=== PATIENT | female | born 1950 | race Two or more races ===

== ENCOUNTER → 2017-03-06 | Outpatient (REF) | payer MEDICARE ==
[~2017-03-06] MED LIST: ALEN70TA39; ALEN70TA39 PO; BACITAB PO; CALC600T31 PO; EXEM25TA; EXEM25TA PO; LEVO88TA24 PO; LEVO88TA3; METR1TAB66; METR1TAB66 PO; VANC125C2 PO; VITA10002 PO; VITMTA PO
== END ==
LOC: M LAB REF 11:36
PROVIDERS: ATTEND Physician Assistant
DX: R19.7 Diarrhea, unspecified (principal)

== ENCOUNTER 2017-03-09 08:57 | Inpatient (IN) | payer MEDICARE ==
[~2017-03-09] VITALS: Ht 154.9 cm; Wt 60.1 kg
[2017-03-09] MEDS ORDERED: METR1TAB66 (09:10)
[2017-03-09] MEDS ORDERED: EXEM25TA (09:10)
[2017-03-09] MEDS ORDERED: ALEN70TA39 (09:10)
[2017-03-09] MEDS ORDERED: LEVO88TA3 (09:10)
[2017-03-09] MEDS ORDERED: NS 500 ML IV ONE (10:15)
[2017-03-09] MEDS ORDERED: fentaNYL 100 MCG/2 ML INJECTION (J3010) IV ONE (10:15)
[2017-03-09 10:44] LABS: BASO % 0.4 % (0.0-1.0); EOS % 0.2 % (0.0-3.0); LARGE UNSTAINED CELL # 0.2 K/mm3 (0.0-0.4); LARGE UNSTAINED CELL % 1.8 % (0.0-4.0); LYMPH # 1.1 K/mm3 (1.5-4.5); LYMPH % 7.4 % (24.0-44.0); MEAN CORPUSCULAR HEMOGLOBIN 31.8 pg (27.0-33.0); MEAN CORPUSCULAR HGB CONC 33.1 g/dl (32.0-36.5); MEAN CORPUSCULAR VOLUME 95.9 fl (80.0-96.0); MONO # 0.5 K/mm3 (0.0-0.8); MONO % 4.3 % (0.0-5.0); NEUTROPHILS # 10.3 K/mm3 (1.8-7.7); PLATELET COUNT, AUTOMATED 429 k/mm3 (150-450); RED CELL DISTRIBUTION WIDTH 12.9 % (11.5-14.5)
[2017-03-09 10:57] LABS: ANION GAP 7 MEQ/L (8-16); BLOOD UREA NITROGEN 5 MG/DL (7-18); CALCIUM LEVEL 8.3 MG/DL (8.8-10.2); CARBON DIOXIDE LEVEL 30 MEQ/L (21-32); CHLORIDE LEVEL 104 MEQ/L (98-107); CREATININE FOR GFR 0.44 MG/DL (0.55-1.02); GLOMERULAR FILTRATION RATE > 60.0 (>45); GLUCOSE, FASTING 112 MG/DL (80-110); SODIUM LEVEL 141 MEQ/L (136-145)
[2017-03-09] MEDS ORDERED: ISOVUE-370 76% 100ML VIAL (Q9967) As Ordered ONE (11:00)
--- NOTE | 2017-03-09 11:23 | REP ---
Clinical: Pain and decreased mobility. Technique: Neutral and frog lateral views of the right hip. Findings: Mild age-related degenerative changes are appreciated including medial joint space narrowing, increased sclerosis to the acetabular roof and subtle spurring. No acute fracture dislocation. Impression: Mild age-related degenerative changes suggested. Signed by Brien Arango MD 03/09/2017 11:14 A
--- NOTE | 2017-03-09 11:38 | REP ---
Clinical: Acute chest pain. Technique: Axial contrast enhanced images from the thoracic inlet to the upper abdomen using 100 ml Isovue 370 intravenous contrast material with coronal and sagittal re-formations. Findings: Satisfactory enhancement of the pulmonary vasculature is achieved and no filling defects are identified to suggest pulmonary embolus. Thoracic aorta is normal caliber without aneurysm or dissection. Heart and pericardium are normal. Bilateral lung camilo are well aerated and clear without acute pulmonary parenchymal consolidation or atelectasis. No nodule or mass lesion. No pleural effusion/reaction. No pneumothorax. No adenopathy. Impression: No evidence for pulmonary embolus. No acute pleuroparenchymal or mediastinal process. Signed by Brien Arango MD 03/09/2017 11:30 A
--- NOTE | 2017-03-09 11:40 | REP ---
Clinical: Acute cervical/neck pain. Technique: Axial noncontrast images from the skull base to the thoracic inlet with coronal and sagittal re-formations. Findings: Moderate to advanced multilevel degenerative changes include bridging osteophytes, endplate sclerosis and disc space narrowing as well as mild uncovertebral hypertrophy. Alignment and lordosis maintained. No acute fracture / compression injury or subluxation. Spinal canal is patent. Posterior elements and spinous processes are intact. Paravertebral soft tissues are normal. Impression: Moderate to early advanced multilevel degenerative disc disease. No acute fracture / compression injury or subluxation. Signed by Brien Arango MD 03/09/2017 11:31 A
[2017-03-09] MEDS ORDERED: POTASSIUM CHLORIDE 10% LIQ 20 MEQ/15 ML UDC PO ONE ×2 (12:15→18:00)
[2017-03-09] MEDS ORDERED: CYCLOBENZAPRINE 5MG TABLET PO ONE (12:30)
[2017-03-09] MEDS ORDERED: VITA10002 PO (13:18)
[2017-03-09] MEDS ORDERED: VITMTA PO (13:18)
[2017-03-09] MEDS ORDERED: METR1TAB66 PO (13:18)
[2017-03-09] MEDS ORDERED: LEVO88TA24 PO (13:18)
[2017-03-09] MEDS ORDERED: EXEM25TA PO (13:18)
[2017-03-09] MEDS ORDERED: CALC600T31 PO (13:18)
[2017-03-09] MEDS ORDERED: ALEN70TA39 PO (13:18)
[2017-03-09] MEDS ORDERED: IPRATROPIUM 0.5MG/ALBUTEROL 2.5MG INH SOL UD 3ML (DUONEB)(J7620) NEB PRN (14:00)
[2017-03-09] MEDS ORDERED: IBUPROFEN 400 MG TAB PO PRN (14:45)
[2017-03-09] MEDS ORDERED: CYCLOBENZAPRINE 10 MG TAB PO PRN (15:00)
[2017-03-09 16:00] VITALS: BP 127/78
[2017-03-09] MEDS: IPRATROPIUM 0.5MG/ALBUTEROL 2.5MG INH SOL UD 3ML (DUONEB)(J7620) NEB SCH ×2 (16:15→20:00)
[2017-03-09 22:00] VITALS: BP 126/61
[2017-03-10] MEDS: IPRATROPIUM 0.5MG/ALBUTEROL 2.5MG INH SOL UD 3ML (DUONEB)(J7620) NEB SCH ×4 (01:04→13:33)
[2017-03-10] MEDS: LEVOTHYROXINE 88MCG TABLET (0.088 MG) PO SCH (05:49)
[2017-03-10 06:00] VITALS: BP 141/72
[2017-03-10 07:15] LABS: ALBUMIN 2.5 GM/DL (3.2-5.2); ALBUMIN/GLOBULIN RATIO 0.64 (1.00-1.93); ALKALINE PHOSPHATASE 85 U/L (45-117); ALT/SGPT 11 U/L (12-78); ANION GAP 8 MEQ/L (8-16); AST/SGOT 11 U/L (15-37); BILIRUBIN,TOTAL 0.4 MG/DL (0.2-1.0); BLOOD UREA NITROGEN 6 MG/DL (7-18); CARBON DIOXIDE LEVEL 28 MEQ/L (21-32); CHLORIDE LEVEL 104 MEQ/L (98-107); CREATININE FOR GFR 0.35 MG/DL (0.55-1.02); GLOMERULAR FILTRATION RATE > 60.0 (>45); GLUCOSE, FASTING 108 MG/DL (80-110); MAGNESIUM LEVEL 1.9 MG/DL (1.8-2.4); POTASSIUM SERUM 3.9 MEQ/L (3.5-5.1); SODIUM LEVEL 140 MEQ/L (136-145); TOTAL PROTEIN 6.4 GM/DL (6.4-8.2)
[2017-03-10 07:25] LABS: BASO # 0.1 K/mm3 (0.0-0.2); BASO % 0.7 % (0.0-1.0); LARGE UNSTAINED CELL # 0.3 K/mm3 (0.0-0.4); LARGE UNSTAINED CELL % 1.9 % (0.0-4.0); LYMPH # 1.2 K/mm3 (1.5-4.5); LYMPH % 9.1 % (24.0-44.0); MEAN CORPUSCULAR HEMOGLOBIN 31.7 pg (27.0-33.0); MEAN CORPUSCULAR HGB CONC 33.1 g/dl (32.0-36.5); MONO # 0.5 K/mm3 (0.0-0.8); MONO % 3.9 % (0.0-5.0); NEUTROPHILS # 11.3 K/mm3 (1.8-7.7); NEUTROPHILS % 84.4 % (36.0-66.0); PLATELET COUNT, AUTOMATED 447 k/mm3 (150-450); RED CELL DISTRIBUTION WIDTH 12.5 % (11.5-14.5); WHITE BLOOD COUNT 13.4 K/mm3 (4.0-10.0)
--- NOTE | 2017-03-10 07:25 | ECGEPIP ---
Stationary ECG Study [facility] - ED Test Date: 2017-03-09 Pat Name: THANH ALLAN Department: Room: - Gender: [employer] Founder: brittani : 1950 Requested By: CLIFF Arthur Order Number: [id number] Reading MD: Kelsey Ortiz Measurements Intervals [place] Rate: 87 P: 61 RI: 163 QRS: -26 QRSD: 86 T: 46 QT: 343 QTc: 413 Interpretive Statements SINUS RHYTHM BORDERLINE LEFT AXIS DEVIATION NSTTW ABNORMALITY NO PRIOR FOR COMPARISON Electronically Signed On 03-10-2017 7:25:39 EDT by Kelsey Ortiz
[2017-03-10] MEDS: CYANOCOBALAMIN 500 MCG TAB PO SCH (09:10)
[2017-03-10] MEDS: MULTIVITAMINS/MINERALS THERAP 1 TAB PO SCH (09:10)
[2017-03-10] MEDS: VANCOMYCIN ORAL SOL 250MG/5ML ORAL SYRINGE PO SCH ×2 (13:13→17:52)
[2017-03-10 14:00] VITALS: BP 154/73
[2017-03-10] MEDS: ACETAMINOPHEN TAB 650MG DOSE (2X325MG) PO PRN (14:49)
[2017-03-10] MEDS: LACTOBACILLUS ACIDOPHILUS CAP (BACID) PO SCH (17:52)
--- NOTE | 2017-03-10 20:58 | IPN ---
DATE: 03/10/2017 SUBJECTIVE: Patient seen and examined in the room. Patient still complained about right knee pain with neck pain. Patient continues to have loose stool. On average she has two loose stools on a daily basis. Patient was diagnosed with Clostridium (C) difficile in the urgent care. Patient was started on Flagyl. Initially it helped with her bowel symptoms, but now patient has worsening of the diarrhea. OBJECTIVE: VITAL SIGNS: Temperature 99.3, pulse is 88, respirations 15, blood pressure is 131/72, pulse oximetry is 97% in room air. GENERAL: No sign of acute distress. Alert and oriented times three. HEENT: Normocephalic, atraumatic. Extraocular motor grossly intact. CARDIOVASCULAR: Positive S1, S2, regular rate. LUNGS: Clear to auscultation bilaterally. ABDOMEN: Soft, nontender, nondistended. Bowel sounds present. No rebound. No guarding. EXTREMITIES: There is some warmth of the right knee. No lower extremity edema. No sign of cyanosis. LABORATORY DATA: WBC 13.4, hemoglobin is 12.5, hematocrit 37.8, platelet count is 447. Sodium is 140, potassium 3.9, chloride is 104, carbon dioxide 28, BUN 6, creatinine 0.35, GFR greater than 60, fasting glucose is 108, calcium is 8, magnesium 1.9. Total bilirubin is 0.4, AST 11, ALT 11, alkaline phosphatase 85, total protein 6.4, albumin is 2.5. Lyme disease IgG/IgM level is pending. Clostridium (C) difficile polymerase chain reaction (PCR) is positive. Urine culture is negative. ASSESSMENT AND PLAN: 1. Clostridium (C) difficile colitis. Patient had Flagyl previously. Patient continues to have loose stool. Patient will start on the by mouth vancomycin. 2. Hypothyroidism. Will follow with a thyroid panel. Patient is on Synthroid. 3. Neck pain with joint pain. Patient was evaluated by physical therapy. They recommend heat and cold. Continue to follow. 4. Deep vein thrombosis (DVT) prophylaxis. On thromboembolic deterrents (TEDs) and sequential compression devices.
[2017-03-10 22:00] VITALS: BP 124/68
[2017-03-11] MEDS: VANCOMYCIN ORAL SOL 250MG/5ML ORAL SYRINGE PO SCH ×4 (00:03→18:14)
[2017-03-11] MEDS: LEVOTHYROXINE 88MCG TABLET (0.088 MG) PO SCH (05:45)
[2017-03-11 06:00] VITALS: BP 152/84
[2017-03-11 07:08] LABS: BASO # 0.1 K/mm3 (0.0-0.2); BASO % 0.5 % (0.0-1.0); EOS % 0.1 % (0.0-3.0); LARGE UNSTAINED CELL # 0.3 K/mm3 (0.0-0.4); LYMPH # 1.3 K/mm3 (1.5-4.5); LYMPH % 9.3 % (24.0-44.0); MEAN CORPUSCULAR HEMOGLOBIN 31.9 pg (27.0-33.0); MEAN CORPUSCULAR HGB CONC 33.2 g/dl (32.0-36.5); MEAN CORPUSCULAR VOLUME 96.3 fl (80.0-96.0); MONO # 0.6 K/mm3 (0.0-0.8); MONO % 4.3 % (0.0-5.0); NEUTROPHILS # 11.5 K/mm3 (1.8-7.7); NEUTROPHILS % 83.7 % (36.0-66.0); PLATELET COUNT, AUTOMATED 485 k/mm3 (150-450); RED CELL DISTRIBUTION WIDTH 12.4 % (11.5-14.5); WHITE BLOOD COUNT 13.7 K/mm3 (4.0-10.0)
[2017-03-11 07:37] LABS: ALBUMIN 2.4 GM/DL (3.2-5.2); ALBUMIN/GLOBULIN RATIO 0.56 (1.00-1.93); ALKALINE PHOSPHATASE 79 U/L (45-117); ALT/SGPT 11 U/L (12-78); ANION GAP 10 MEQ/L (8-16); AST/SGOT 11 U/L (15-37); BILIRUBIN,TOTAL 0.4 MG/DL (0.2-1.0); BLOOD UREA NITROGEN 8 MG/DL (7-18); CALCIUM LEVEL 8.1 MG/DL (8.8-10.2); CARBON DIOXIDE LEVEL 28 MEQ/L (21-32); CHLORIDE LEVEL 104 MEQ/L (98-107); CREATININE FOR GFR 0.29 MG/DL (0.55-1.02); GLOMERULAR FILTRATION RATE > 60.0 (>45); GLUCOSE, FASTING 105 MG/DL (80-110); SODIUM LEVEL 142 MEQ/L (136-145); T UPTAKE 40 % (30-39); THYROXINE (T4) 8.6 UG/DL (4.5-12.0); TOTAL PROTEIN 6.7 GM/DL (6.4-8.2)
[2017-03-11] MEDS: CYANOCOBALAMIN 500 MCG TAB PO SCH (07:56)
[2017-03-11] MEDS: MULTIVITAMINS/MINERALS THERAP 1 TAB PO SCH (07:56)
[2017-03-11] MEDS: LACTOBACILLUS ACIDOPHILUS CAP (BACID) PO SCH ×3 (07:56→18:14)
--- NOTE | 2017-03-11 08:23 | HPE ---
DATE OF ADMISSION: 03/09/2017 PRIMARY CARE PROVIDER: None. CHIEF COMPLAINT: Muscle pain. HISTORY OF PRESENT ILLNESS: The patient is a 66-year-old female presented with muscle aches and weakness. She reported her symptoms started around on February 28 with cold chills and she developed headache and the pain radiated down the neck posteriorly. The following day diarrhea started and that lasted for about five days. She visited and urgent care center where she was evaluated and stool studies there revealed infection with campylobacter Escherichia coli (E. Coli) and Clostridium (C.) difficile. She was treated with Flagyl. Six days ago, she noticed right-sided hip and leg pain, so severe that her mobility and functionality were affected. She also reports right-sided chest pain whenever she takes a deep breath. For the last two nights she has been unable to sleep, unable to get comfortable in her bed. She is also having significant difficulty getting out of bed, walking to the bathroom. She did mention that in November she had a similar neck pain and this started after she took an antibiotic for urinary tract infection (UTI). Today, she has had two episodes of diarrhea in the hospital. She denies, however, fever, cough, shortness of breath, nausea or vomiting, recent travel, sick contact. REVIEW OF SYSTEMS: Ten-point system were assessed and negative except as listed above in HPI. PAST MEDICAL HISTORY: Right-sided breast cancer. PAST SURGICAL HISTORY: Lumpectomy. Cholecystectomy. She also had thyroidectomy. Gastric bypass surgery four years ago. Small cell cancer of the scalp. FAMILY HISTORY: She denies any neuromuscular diseases in the family. SOCIAL HISTORY: She denies smoking, alcohol abuse or recreational drug abuse. She is and lives with . Currently retired and was recently doing some upgrade at home. She was laying the floor with her . ALLERGIES: LOPERAMIDE. HOME MEDICATIONS: - alendronate 70 mg once a week - vitamin B12 1000 mcg once daily - levothyroxine 88 mcg once a day - metronidazole 500 mg four times a day - multivitamin - calcium 600 mg tablet daily - exemestane 25 mg in the evening PHYSICAL EXAMINATION: VITAL SIGNS: Are stable and within normal limits. Blood pressure 139/64, pulse 88, respiratory rate 18, 02 saturation 97% on room air. Temperature 97.2 degrees Fahrenheit. GENERAL: The patient is alert, oriented to person, place, time, and circumstance. Appears uncomfortable. In bed, having difficulty getting up out of bed with pulling herself upwards on the bed without assistance. HEENT: Pupils are equal, round and reactive to light. Extraocular muscles intact. Anicteric sclerae. Mucous membranes moist. Neck is supple, slight tenderness of the posterior lateral muscles. She also has limited range of motion to left side. CARDIOVASCULAR: S1, S2 present. Rate is regular. No audible murmurs, rubs or gallops. RESPIRATORY: Lungs clear to auscultation bilaterally. GASTROINTESTINAL (GI): Abdomen is soft, nontender, nondistended. Bowel sounds normal. MUSCULOSKELETAL: There is no edema, cyanosis or calf tenderness. However, she does have neck tenderness to deep palpation. Also lower back on the right side tender to palpation. She is also having pain on the right knee with difficulty bending the knee. SKIN: Warm, dry, acyanotic without rash. NEUROLOGY: Unable to fully evaluate due to her discomfort at this point. LABS: Hematology: White blood cell count is 12, hemoglobin 13, hematocrit 39, platelets 429. Chemistry: Sodium is 141, potassium 2.0, chloride 104, bicarbonate 30, BUN 5, creatinine 0.44. GFR greater than 60. Fasting glucose 112. Calcium 2.2. CK 57. Troponin I less than 0.02. BNP 61.9. Serology: Lyme disease testing is pending. IMAGING STUDIES: X-ray of the hip shows age-related degenerative disease. CT scan of the cervical spine showed moderate early advanced multi degenerative joint disease (DJD). No acute fracture, compression injuries or subluxation noted. CT angio of the chest revealed no evidence of pulmonary emboli or pleural parenchymal mediastinal process. EKG showed normal sinus rhythm at 87 beats per minute with left axis deviation. IMPRESSION: 1. 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 3. Recurrent diarrhea. 4. Mild leukocytosis. 5. Hypokalemia. 6. History of hypothyroid. PLAN: The patient is admitted for observation and followup testing. Heavy metal analysis will be sent out and that might take a few days to be resulted. Also Lyme titers are pending. There is no further evidence for other tick-borne infection such as babesiosis and . Will continue nonsteroidal anti-inflammatory drug (NSAID) and Flexeril as needed. Potassium has been repleted. She will get a second dose at 6:00 p.m. Please followup levels in the morning. Consider neurology evaluation if patient's symptoms are not improving. Physical therapy (PT) evaluation and treatment also ordered. Deep venous thrombosis (DVT) prophylaxis with compression stockings. Home needed medications are continued in the hospital.
[2017-03-11 16:00] VITALS: BP 145/69
--- NOTE | 2017-03-11 19:40 | IPN ---
DATE: 03/11/2017 SUBJECTIVE: Patient seen and examined in the room. Patient still complained about right knee swelling and pain. Heat and the cold is not helping her. She feels the neck pain is improving slightly. Patient shows that she has an improvement of watery bowel movements. No overnight events reported. OBJECTIVE: VITAL SIGNS: Temperature 99.6, pulse is 104, respirations 18, blood pressure is 152/84, pulse oximetry is 95% in room air. GENERAL: Mild to moderate distress secondary to the neck and the left knee pain. HEENT: Painful to palpation at the bilateral occipital region, otherwise normocephalic, atraumatic. Extraocular motor grossly intact. CARDIOVASCULAR: Positive S1, S2, regular rate. LUNGS: Clear to auscultation bilaterally. ABDOMEN: Soft, nontender, nondistended. Bowel sounds present. No rebound. No guarding. EXTREMITIES: There is some warmth of the right knee. There is also swelling. I can not appreciate any significant effusion below the patella. No lower extremity edema and no signs of cyanosis. LABORATORY DATA: WBC 13.7, hemoglobin is 13.2, hematocrit 39.7, platelet count is 485. Sodium is 142, potassium 4, chloride is 104, carbon dioxide 28, BUN 8, creatinine 0.29, GFR greater than 60, fasting glucose is 105, calcium is 8.1, total bilirubin is 0.4, AST 11, ALT 11, alkaline phosphatase 79, total protein 6.7, albumin is 2.4, TSH 4.34, free T4 8.6. MICROBIOLOGY: Positive for Clostridium (C) difficile. ASSESSMENT AND PLAN: 1. Clostridium (C) difficile colitis. Patient previously was on Flagyl before in the outpatient setting. Patient was started on by mouth vancomycin and Bacid. Patient is currently on Flexeril currently. 2. Hypothyroidism. Patient has a normal free T4. Continue current Synthroid dosage. 3. Right knee pain. Conservative medical management is not helping with the pain. Lyme disease panel is pending. TARI, rheumatoid factor and anti-CCP level. We will also follow with the right knee x-ray. Patient denies any acute trauma or injury to the right knee. Patient right knee finding may be related to current acting fascia which we will try to rule out potential sources. Patient continues to have elevated WBC, it could be due to current c-diff infection but we can not rule out any other possible sources of the knee. 4. Neck pain. CT of the neck was performed. Patient showed there is moderate to early multilevel degenerative disc disease. There is no acute fracture of compression injury or subluxation. Continue to follow with physical therapy. Continue with heating pad. Pain medication as needed. 5. Deep vein thrombosis (DVT) prophylaxis. On thromboembolic deterrents (TEDs) and sequential compression devices.
--- NOTE | 2017-03-11 19:44 | REP ---
RIGHT KNEE, FIVE VIEWS: HISTORY: Pain. There is no acute fracture or dislocation. There is narrowing of the joint spaces. An osteophyte is present on the patella. A suprapatellar joint effusion is present. IMPRESSION: Degenerative change as described above. Signed by Servando Fu MD 03/11/2017 07:45 P
[2017-03-11] MEDS: ACETAMINOPHEN TAB 650MG DOSE (2X325MG) PO PRN (20:41)
[2017-03-11 22:00] VITALS: BP 154/82
[2017-03-12 00:11] LABS: Lyme Disease IgG/IgM Antibodie <0.91 ISR (0.00-0.90); Lyme Disease IgM Ab Quantitati <0.80 index (0.00-0.79)
[2017-03-12] MEDS: VANCOMYCIN ORAL SOL 250MG/5ML ORAL SYRINGE PO SCH ×4 (00:48→18:19)
[2017-03-12 06:00] VITALS: BP 142/74
[2017-03-12] MEDS: LEVOTHYROXINE 88MCG TABLET (0.088 MG) PO SCH (06:34)
[2017-03-12 07:26] LABS: BASO % 0.4 % (0.0-1.0); EOS % 0.3 % (0.0-3.0); LARGE UNSTAINED CELL # 0.2 K/mm3 (0.0-0.4); LARGE UNSTAINED CELL % 1.4 % (0.0-4.0); LYMPH # 1.2 K/mm3 (1.5-4.5); LYMPH % 8.3 % (24.0-44.0); MEAN CORPUSCULAR HEMOGLOBIN 31.5 pg (27.0-33.0); MEAN CORPUSCULAR HGB CONC 33.2 g/dl (32.0-36.5); MEAN CORPUSCULAR VOLUME 94.9 fl (80.0-96.0); MONO # 0.7 K/mm3 (0.0-0.8); MONO % 5.2 % (0.0-5.0); NEUTROPHILS # 10.6 K/mm3 (1.8-7.7); NEUTROPHILS % 84.4 % (36.0-66.0); PLATELET COUNT, AUTOMATED 470 k/mm3 (150-450); RED CELL DISTRIBUTION WIDTH 12.8 % (11.5-14.5); WHITE BLOOD COUNT 12.6 K/mm3 (4.0-10.0)
[2017-03-12 07:52] LABS: ALBUMIN 2.3 GM/DL (3.2-5.2); ALBUMIN/GLOBULIN RATIO 0.47 (1.00-1.93); ALKALINE PHOSPHATASE 82 U/L (45-117); ALT/SGPT 12 U/L (12-78); ANION GAP 7 MEQ/L (8-16); AST/SGOT 9 U/L (15-37); BILIRUBIN,TOTAL 0.5 MG/DL (0.2-1.0); BLOOD UREA NITROGEN 10 MG/DL (7-18); CALCIUM LEVEL 8.4 MG/DL (8.8-10.2); CARBON DIOXIDE LEVEL 29 MEQ/L (21-32); CHLORIDE LEVEL 102 MEQ/L (98-107); CREATININE FOR GFR 0.31 MG/DL (0.55-1.02); GLOMERULAR FILTRATION RATE > 60.0 (>45); GLUCOSE, FASTING 98 MG/DL (80-110); POTASSIUM SERUM 4.1 MEQ/L (3.5-5.1); SODIUM LEVEL 138 MEQ/L (136-145); TOTAL PROTEIN 7.2 GM/DL (6.4-8.2)
[2017-03-12] MEDS: CYANOCOBALAMIN 500 MCG TAB PO SCH (08:11)
[2017-03-12] MEDS: MULTIVITAMINS/MINERALS THERAP 1 TAB PO SCH (08:11)
[2017-03-12] MEDS: LACTOBACILLUS ACIDOPHILUS CAP (BACID) PO SCH ×3 (08:11→18:19)
[2017-03-12] MEDS ORDERED: LIDOCAINE 1% MDV 20ML VIAL IM ONE (08:15)
[2017-03-12 08:30] LABS: ERYTHROCYTE SEDIMENTATION RATE 67 mm/hr (0-30)
[2017-03-12 14:00] VITALS: BP 135/80
[2017-03-12] MEDS ORDERED: TRIAMCINOLONE ACETONIDE SUSP 40 MG/ML VIAL (J3301) IA ONE (15:24)
[2017-03-12 15:57] LABS: CRYSTALS, BODY FLUID NONE SEEN (NONE SEEN); SYNOVIAL FLUID COLOR YELLOW (YELLOW)
[2017-03-12 16:24] LABS: URIC ACID, BODY FLUID 3.4 MG/DL (NOT ESTABLISHED)
[2017-03-12 16:32] LABS: BF DIFF IF INDICATED? YES (NO); RBC ADVIA BF 0; RBC CALC. BF < 10000 (< 10mm3 cells/uL); WBC ADVIA BF 17.8; WBC CALC. BF 17800 cells/uL (0-20)
--- NOTE | 2017-03-12 17:34 | CR ---
DATE OF CONSULTATION: 03/12/2017 CONSULTING PHYSICIAN: Jeanne Ervin MD REASON FOR CONSULTATION: Right knee swelling. HISTORY OF PRESENT ILLNESS: She has recently been treated for Clostridium (C.) difficile colitis beginning around February 28 or so. Started out with some diarrhea and then she went to an Urgent Care where they did a stool culture growing Campylobacter clostridium and Escherichia coli (E. Coli) and was started with Flagyl. Then she started developing soreness and pain in her right knee area and was admitted to [facility] March 09, 2017 with pain and soreness of the right knee with questionable fever, although she did not take her temperature. There has been no specific injury to this right knee recently that she can recall that had started this, just more of a spontaneous onset of soreness, pain and some swelling in the right knee region. She was admitted by the hospitalist service and laboratory workup included serologies where she has had a negative rheumatoid factor, negative toxicology of heavy metals which is pending. Lyme titers showed a negative IgG and a negative IgM, and negative IgM quantified. Clostridium PCR was positive. Urine culture is negative. Blood culture is presently pending, but her stool cultures from the past indeed were positive for Campylobacter, C. difficile and E. Coli. Her anticyclic citrullinated peptide is presently pending as well as TARI screen. She has started to show some improvement. Her diarrhea is now gone and she remains on by mouth (p.o.) vancomycin, but because of the persisting right knee pain, I was asked to see her. She has shown elevated CRP. Today it was up to 18.1 with an elevated sedimentation rate and white count of 12.6. She had a temperature yesterday of 101. PAST MEDICAL HISTORY: 1. Her past medical history otherwise is positive for history of obesity, status post gastric bypass. 2. History of breast cancer. 3. Hypothyroidism. HOME MEDICATIONS: - alendronate - vitamin B12 - levothyroxine - metronidazole - multivitamin with calcium - Exemestane ALLERGIES: LOPERAMIDE. PAST SURGICAL HISTORY: Breast biopsy. Cholecystectomy. Thyroidectomy. Gastric bypass. SOCIAL HISTORY: She does not smoke or drink alcohol excessively. She is , lives with her . They live in [place], but sold their house recently and now live up on the [address]. 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 REVIEW OF SYSTEMS: Otherwise her review of system is unremarkable and please refer to the history of physical from Dr. Morrissey's workup on March 09 for the rest of the details. PHYSICAL EXAMINATION: She is very pleasant, alert female. The only complaint presently is right sided knee pain. There is some neck discomfort as well which is more or less chronic for her, but nothing new. Not complaining of numbness or tingling in her upper or her lower extremities. Her vital signs have shown that she has been afebrile today with a blood pressure of 142/74, pulse 88, respirations 18, O2 saturation are 96% on room air. Her right lower extremity shows no irritability of rotation of either hip actually. Both lower extremities with no irritation on the hips. There is no synovitis of the left knee, left ankle or foot. Right lower extremity again, no synovitis or reactive pain in the hip joint, but her right knee is quite tender, slightly warm with a palpable effusion. It is tender diffusely. It is sore when she tries to flex and extend the knee. The right ankle is benign. Good pulses in her feet. Normal motor strength of the extensor hallucis longus (EHL) and flexor hallucis longus (FHL). No pitting edema or her ankles or sensory loss. Again her laboratory studies were reviewed from today as above. The sedimentation rate today did come back now at 67. X-rays of the right knee reviewed showed just some minimal degenerative changes. No acute findings are noted. IMPRESSION: It is my impression she has a right knee synovitis. The most critical diagnosis to rule out of course would be a septic process. The other possibility is that this could be some type of a reactive synovitis that sometimes has been known to be associated with C. difficile colitis as well as Campylobacter infections. The other possibility is gout or other rheumatoid process although we seem to have ruled out Lyme disease and rheumatoid arthritis, although some of the serology for rheumatoid arthritis is still pending. RECOMMENDATIONS: My recommendations are to aspirate her knee and get a joint fluid sample and if it looks relatively benign we could even proceed with steroid shock. My clinical sense is that this is a reactive synovitis. So I talked to her about this with her and she is agreeable to getting this done, so that is our plan for today.
--- NOTE | 2017-03-12 20:12 | IPN ---
DATE: 03/12/2017 SUBJECTIVE: The patient is seen and examined in the room today. The patient still has intermittent fevers. The patient stated her neck pain is stable; however, the right knee pain is still bothering her. The right knee swelling still persists. Abdominal pain is resolved. The patient started to have formed stool. OBJECTIVE: VITAL SIGNS: Temperature 98.4, pulse 88, respirations 18, blood pressure 142/74, pulse oximetry is 96% in room air. GENERAL: Mild distress secondary to the neck pain and the right knee pain. Alert and oriented times three. HEENT: Normocephalic, atraumatic. Extraocular motor grossly intact. CARDIOVASCULAR: Positive S1, S2, regular rate. LUNGS: Clear to auscultation bilaterally. ABDOMEN: Soft, nontender, nondistended. Bowel sounds present. EXTREMITIES: There is still persistent warmth on the right knee, and there is some erythema of the right knee. No lower extremity edema. No sign of cyanosis. LABORATORY DATA: WBC 12.6, hemoglobin is 12.5, hematocrit 37.5, platelet count is 470. Sodium is 138, potassium 4.1, chloride 102, carbon dioxide 29, BUN 10, creatinine 0.31, GFR greater than 60, fasting glucose 98, calcium is 8.4, total bilirubin 0.5, AST 9, ALT 12, alkaline phosphatase 82, C-reactive protein is 18.1, total protein 7.2, albumin is 2.3. ASSESSMENT AND PLAN: 1. Clostridium difficile colitis. The patient is on oral vancomycin. The patient started to have formed stool. The patient had a history of using Flagyl in the outpatient setting. 2. Right knee effusion. The patient continues to have persistent right knee swelling and erythema. Right knee x-ray was performed. This showed positive for effusion. We have consulted orthopedic team; we appreciate their assistance. 3. Moderate to early multilevel degenerative disc disease of the neck. Continue medical management at this moment. 4. Hypothyroidism, on Synthroid. 5. Deep vein thrombosis (DVT) prophylaxis, on thromboembolism deterrents (TEDs), sequential compression device.
[2017-03-12 21:22] LABS: CC BF DIFF EXAM CYTOCENTRIFUGE
[2017-03-12 21:53] LABS: HCT SOURCE RT KNEE
[2017-03-12 22:00] VITALS: BP 125/68
--- NOTE | 2017-03-13 00:12 | RO ---
DATE OF PROCEDURE: 03/12/2017 PREPROCEDURE DIAGNOSIS: Right knee synovitis. POSTPROCEDURE DIAGNOSIS: Right knee synovitis. PROCEDURE: Right knee aspiration and injection of steroid. SURGEON: Dr. Jeanne Ervin SPARE HAND CARDING: ANESTHESIA: Local. COMPLICATIONS: None. SPECIMENS: Joint fluid. FINDINGS: Approximately 10 mL of relatively watery yellowish fluid was obtained from the knee joint. DESCRIPTION OF PROCEDURE: After appropriate time-out and consent had been obtained from the patient and the right knee was marked and a sterile prep was applied to the superolateral aspect of the knee with a Betadine swab times two. 1% lidocaine was infiltrated in the skin superficially and then I used an 18-gauge needle to penetrate into the joint and aspirated about 10 mL of relatively watery yellowish fluid. This was placed into a green top and red top tube and sent for formal joint fluid analysis, gram stain, culture and sensitivity and because of the appearance of the fluid, I elected to proceed with Kenalog 40 1 mL injection, followed up by about 5 mL of 1% lidocaine. She tolerated well. A Band-aid was applied.
[2017-03-13] MEDS: VANCOMYCIN ORAL SOL 250MG/5ML ORAL SYRINGE PO SCH ×3 (00:42→12:52)
[2017-03-13 06:00] VITALS: BP 176/82
[2017-03-13] MEDS: LEVOTHYROXINE 88MCG TABLET (0.088 MG) PO SCH (06:48)
[2017-03-13 07:11] LABS: BASO % 0.1 % (0.0-1.0); EOS % 0.1 % (0.0-3.0); LARGE UNSTAINED CELL # 0.1 K/mm3 (0.0-0.4); LARGE UNSTAINED CELL % 0.4 % (0.0-4.0); LYMPH # 0.5 K/mm3 (1.5-4.5); LYMPH % 3.7 % (24.0-44.0); MEAN CORPUSCULAR HGB CONC 33.4 g/dl (32.0-36.5); MEAN CORPUSCULAR VOLUME 95.9 fl (80.0-96.0); MONO # 0.3 K/mm3 (0.0-0.8); MONO % 2.3 % (0.0-5.0); NEUTROPHILS # 11.8 K/mm3 (1.8-7.7); NEUTROPHILS % 93.5 % (36.0-66.0); PLATELET COUNT, AUTOMATED 470 k/mm3 (150-450); RED CELL DISTRIBUTION WIDTH 12.6 % (11.5-14.5); WHITE BLOOD COUNT 12.7 K/mm3 (4.0-10.0)
[2017-03-13 07:53] LABS: ALBUMIN 2.3 GM/DL (3.2-5.2); ALBUMIN/GLOBULIN RATIO 0.55 (1.00-1.93); ALKALINE PHOSPHATASE 87 U/L (45-117); ALT/SGPT 13 U/L (12-78); ANION GAP 9 MEQ/L (8-16); AST/SGOT 17 U/L (15-37); BILIRUBIN,TOTAL 0.3 MG/DL (0.2-1.0); BLOOD UREA NITROGEN 14 MG/DL (7-18); CALCIUM LEVEL 8.3 MG/DL (8.8-10.2); CARBON DIOXIDE LEVEL 25 MEQ/L (21-32); CHLORIDE LEVEL 105 MEQ/L (98-107); GLOMERULAR FILTRATION RATE > 60.0 (>45); GLUCOSE, FASTING 124 MG/DL (80-110); POTASSIUM SERUM 4.6 MEQ/L (3.5-5.1); SODIUM LEVEL 139 MEQ/L (136-145); TOTAL PROTEIN 6.5 GM/DL (6.4-8.2)
[2017-03-13] MEDS: LACTOBACILLUS ACIDOPHILUS CAP (BACID) PO SCH ×2 (08:25→12:52)
[2017-03-13] MEDS: MULTIVITAMINS/MINERALS THERAP 1 TAB PO SCH (08:25)
[2017-03-13] MEDS: CYANOCOBALAMIN 500 MCG TAB PO SCH (08:26)
[2017-03-13] MEDS ORDERED: BACITAB PO (11:18)
[2017-03-13] MEDS ORDERED: VANC125C2 PO (11:18)
--- NOTE | 2017-03-16 18:34 | DSES ---
DATE OF ADMISSION: 03/11/2017 DATE OF DISCHARGE: 03/13/2017 CONSULTANTS: Orthopedic surgeryJeanne MD PROCEDURES: Right knee aspiration. PRIMARY CARE PROVIDER: None. HOSPITALIZATION COURSE: Patient is a 66-year-old female who presented to [facility] on 03/09/2017, for multiple muscle pain including neck pain and right knee pain. Patient was also started on oral vancomycin for patient's Clostridium (C) difficile colitis, failing outpatient Flagyl therapy. Right knee imaging study was performed on 03/11/2017. Patient was found to have a right knee effusion and orthopedic surgery team was consulted. Patient had a right knee aspiration with a steroid injection. Patient showed significant improvement of her right knee pain and patient's neck pain was determined to be caused by chronic degenerative disc disease. Medical management is able to control patient's discomfort. On 03/13/2017, patient is discharged home with recommendation to establish with a new primary care provider in [place] in 7-10 days. OBJECTIVE: VITAL SIGNS: Temperature is 97.8, pulse is 94, respirations is 17, blood pressure is 176/82, pulse oximetry is 98%. LABORATORY DATA: WBC 12.7, hemoglobin 12.5, hematocrit 37.4, platelet count is 470. Sodium is 139, potassium 4.6, chloride 105, carbon dioxide 25, BUN 14, creatinine 0.3, GFR greater than 60, fasting glucose 124, calcium 8.3, total bilirubin 0.3, AST 17, ALT 13, alkaline phosphatase 87, C-reactive protein is 16, total protein is 6.5, albumin 2.3. Immunology: Rheumatoid factor is negative. Anti-CCP is negative. TARI screening is negative. Right knee joint synovial fluid analysis showed WBC at 17,800. Microbiology: Urine culture on 03/09/2017, showed no growth. C. difficile PCR on 03/10/2017, is positive. Blood culture is negative after 72 hours times two sets. Joint fluid gram stain shows no organism. IMAGING STUDIES: The right hip x-ray on 03/09/2017, showed mild age-related degenerative change. CT of the cervical spine without contrast on 03/09/2017, showed moderate to early advanced multilevel degenerative disc disease. No acute fracture or compression injury or subluxation. CT angio on 03/09/2017, showed no evidence of pulmonary embolism. No acute pleuroparenchymal or mediastinal process. Right knee x-ray on 03/11/2017, showed degenerative changes. DISCHARGE MEDICATIONS: - Bacid one tablet by mouth with meals for 10 days - vancomycin 125 mg by mouth four times a day for 7 more days - alendronate 70 mg by mouth weekly - calcium 600 mg by mouth daily - vitamin B12 1000 mcg by mouth daily - exemestane 25 mg by mouth every evening - levothyroxine 88 mcg by mouth daily - multivitamin one tablet by mouth daily DISCHARGE INSTRUCTIONS: Discontinue lines. Discharge home. Activity as tolerated. Patient should establish with a new primary care provider in [place] and followup with the new primary care provider in 1-2 weeks. DISCHARGE CONDITION: Stable. DISCHARGE TIME: Greater than 30 minutes.
[2017-03-17 00:07] LABS: ARSENIC 8 ug/L (2-23); NICKEL 2.6 ug/L (0.6-7.5)
== END 2017-03-13 14:27 | disposition home or self-care (01) | DRG 373 ==
LOC: M ED 08:57 → M ED INP 13:48 → M MS5PR 15:45 → OBSVTOIN 03-11 08:40
PROVIDERS: ADMIT Hospitalist; ATTEND Internal Medicine
PROC: 0S9C3ZX Drainage of Right Knee Joint, Percutaneous Approach, Diagnostic (ICD-10-PCS; principal; 2017-03-12)
PROC: 3E0U33Z Introduction of Anti-inflammatory into Joints, Percutaneous Approach (ICD-10-PCS; 2017-03-12)
DX: A04.7 Enterocolitis due to Clostridium difficile (principal); M25.461 Effusion, right knee; M17.11 Unilateral primary osteoarthritis, right knee; E87.6 Hypokalemia; E03.9 Hypothyroidism, unspecified; M54.2 Cervicalgia; Z79.899 Other long term (current) drug therapy; Z85.3 Personal history of malignant neoplasm of breast; Z90.49 Acquired absence of other specified parts of digestive tract; Z98.84 Bariatric surgery status; Z85.828 Personal history of other malignant neoplasm of skin; Z88.8 Allergy status to other drugs, medicaments and biological substances

== ENCOUNTER → 2018-01-21 | Outpatient (REF) | payer MEDICARE ==
[2018-01-21 12:26] LABS: FREE T4 1.04 NG/DL (0.76-1.46)
== END ==
LOC: M LABDRAWC 11:17
DX: E03.9 Hypothyroidism, unspecified (principal)

== ENCOUNTER → 2018-01-21 | Outpatient (REF) | payer MEDICARE ==
[2018-01-21 11:58] LABS: BASO # 0.1 10^3/uL (0.0-0.2); BASO % 0.9 % (0.0-1.0); EOS # 0.1 10^3/uL (0.0-0.50); EOS % 1.8 % (0.0-3.0); HEMATOCRIT 40.6 % (36.0-47.0); HEMOGLOBIN 12.7 g/dl (12.0-15.5); IMMATURE GRANULOCYTE % 0.4 % (0-3.0); LYMPH # 1.6 10^3/uL (1.5-4.5); LYMPH % 28.3 % (24.0-44.0); MEAN CORPUSCULAR HEMOGLOBIN 30.5 pg (27.0-33.0); MEAN CORPUSCULAR HGB CONC 31.3 g/dl (32.0-36.5); MEAN CORPUSCULAR VOLUME 97.4 fl (80.0-96.0); MONO # 0.4 10^3/uL (0.0-0.8); MONO % 7.8 % (0.0-5.0); NEUTROPHILS # 3.5 10^3/uL (1.8-7.7); NEUTROPHILS % 60.8 % (36.0-66.0); PLATELET COUNT, AUTOMATED 280 10^3/uL (150-450); RED BLOOD COUNT 4.17 10^6/uL (4.00-5.40); RED CELL DISTRIBUTION WIDTH 13.1 % (11.5-14.5); WHITE BLOOD COUNT 5.7 10^3/uL (4.0-10.0)
[2018-01-21 12:22] LABS: VITAMIN B12 LEVEL 594 PG/ML (247-911)
[2018-01-21 12:32] LABS: ALBUMIN 3.3 GM/DL (3.2-5.2); ALBUMIN/GLOBULIN RATIO 1.03 (1.00-1.93); ALKALINE PHOSPHATASE 75 U/L (45-117); ALT/SGPT 21 U/L (12-78); ANION GAP 3 MEQ/L (8-16); AST/SGOT 19 U/L (7-37); BILIRUBIN,TOTAL 0.4 MG/DL (0.2-1.0); BLOOD UREA NITROGEN 12 MG/DL (7-18); CARBON DIOXIDE LEVEL 32 MEQ/L (21-32); CHLORIDE LEVEL 108 MEQ/L (98-107); CREATININE FOR GFR 0.52 MG/DL (0.55-1.30); FERRITIN 374 NG/ML (8-252); GLOMERULAR FILTRATION RATE > 60.0 (>45); GLUCOSE, FASTING 81 MG/DL (70-100); IRON (FE) 99 UG/DL (50-170); PERCENT SATURATION 40.6 % (13.2-45.0); POTASSIUM SERUM 3.8 MEQ/L (3.5-5.1); SODIUM LEVEL 143 MEQ/L (136-145); TOTAL IRON BINDING CAPACITY 244 UG/DL (250-450); TOTAL PROTEIN 6.5 GM/DL (6.4-8.2)
== END ==
LOC: M LABDRAWC 11:13
DX: E66.01 Morbid (severe) obesity due to excess calories (principal); Z14.8 Genetic carrier of other disease; E83.19 Other disorders of iron metabolism; E03.9 Hypothyroidism, unspecified
CPT/HCPCS: 83550

== ENCOUNTER → 2018-02-22 | Outpatient (REF) | payer MEDICARE | LOC: M SFHCCLAY 10:53 | DX: N30.01 Acute cystitis with hematuria (principal) | CPT/HCPCS: 87086 ==

== ENCOUNTER → 2018-03-03 | Outpatient (REF) | payer MEDICARE | LOC: M SFHCCLAY 17:22 | DX: N39.0 Urinary tract infection, site not specified (principal) | CPT/HCPCS: 87086 ==

== ENCOUNTER → 2019-01-24 | Outpatient (REF) | payer MEDICARE ==
[~2019-01-24] MED LIST changes: -ALEN70TA39; -ALEN70TA39 PO; +ALEN70TA74; +ALEN70TA74 PO; +METR-265; +METR-265 PO; -METR1TAB66; -METR1TAB66 PO; -VANC125C2 PO; +VANC125C3 PO
== END ==
LOC: M SFHCCLAY 10:20
PROVIDERS: ATTEND Family Medicine
DX: Z11.59 Encounter for screening for other viral diseases (principal)

== ENCOUNTER 2019-02-28 08:14 | Day surgery (SDC) | payer MEDICARE ==
[~2019-02-28] VITALS: Ht 157.5 cm; Wt 63.5 kg
[~2019-02-28 08:14] MED LIST changes: +GABA-843 PO; +LEVO100T5 PO; +NITR4TASL SL; +VITA-176 PO
[2019-02-28] MEDS: NS 1,000 ML IV ONE (08:44)
[2019-02-28] MEDS ORDERED: LIDOCAINE 2% INJ 100 MG/5 ML SDV (FOR ANES.) As Ordered ONE ×2 (09:05→10:12)
[2019-02-28] MEDS ORDERED: PROPOFOL 200 MG/20 ML VIAL As Ordered ONE ×2 (09:05→10:11)
--- NOTE | 2019-02-28 10:31 | ROOR ---
Patient Name: Mariajose Velarde Procedure Date: 02/28/2019 9:45 AM Date of : 1950 Age: 68 Room: [facility] Gender: Female Note Status: Finalized Procedure: Colonoscopy Indications: Screening for colorectal malignant neoplasm Providers: Louis Blackburn MD Referring MD: Trenton Kahn MD ([place]) Requesting Provider: Medicines: Monitored Anesthesia Care Complications: No immediate complications. Procedure: Pre-Anesthesia Assessment: - Prior to the procedure, a History and Physical was performed, and patient medications and allergies were reviewed. The patient is competent. The risks and benefits of the procedure and the sedation options and risks were discussed with the patient. All questions were answered and informed consent was obtained. Patient identification and proposed procedure were verified by the physician, the nurse and the anesthesiologist in the procedure room. Mental Status Examination: alert and oriented. Airway Examination: normal oropharyngeal airway and neck mobility. Respiratory Examination: clear to auscultation. CV Examination: normal. Prophylactic Antibiotics: The patient does not require prophylactic antibiotics. Prior Anticoagulants: The patient has taken no previous anticoagulant or antiplatelet agents. ASA Grade Assessment: II - A patient with mild systemic disease. After reviewing the risks and benefits, the patient was deemed in satisfactory condition to undergo the procedure. The anesthesia plan was to use monitored anesthesia care (MAC). Immediately prior to administration of medications, the patient was re-assessed for adequacy to receive sedatives. The heart rate, respiratory rate, oxygen saturations, blood pressure, adequacy of pulmonary ventilation, and response to care were monitored throughout the procedure. The physical status of the patient was re-assessed after the procedure. The Colonoscope was introduced through the anus and advanced to the terminal ileum, with identification of the appendiceal orifice and IC valve. The colonoscopy was performed without difficulty. The patient tolerated the procedure well. The quality of the bowel preparation was good. The ileocecal valve, appendiceal orifice, and rectum were photographed. Scope insertion time was 3 minutes. Scope withdrawal time was 9 minutes. The total duration of the procedure was 12 minutes. Findings: The perianal and digital rectal examinations were normal. The terminal ileum appeared normal. A 5 mm polyp was found in the transverse colon. The polyp was sessile. The polyp was removed with a cold snare. Resection and retrieval were complete. Verification of patient identification for the specimen was done by the physician and nurse using the patient's name, date and medical record number. Multiple small and large-mouthed diverticula were found from sigmoid to descending colon. There was no evidence of diverticular bleeding. Non-bleeding external and internal hemorrhoids were found during retroflexion. The hemorrhoids were medium-sized. Impression: - The examined portion of the ileum was normal. - One 5 mm polyp in the transverse colon, removed with a cold snare. Resected and retrieved. - Moderate diverticulosis from sigmoid to descending colon. There was no evidence of diverticular bleeding. - Non-bleeding external and internal hemorrhoids. Recommendation: - Patient has a contact number available for emergencies. The signs and symptoms of potential delayed complications were discussed with the patient. Return to normal activities tomorrow. Written discharge instructions were provided to the patient. - High fiber diet. - Continue present medications. - Await pathology results. - Repeat colonoscopy in 5-10 years for surveillance based on pathology results. - Based on the biopsy results you will receive a phone call from GI clinic in 2-3 weeks to review the pathology results AND/OR your results will be faxed to your Primary care physician. - Return to primary care physician. Attending Participation: I personally performed the entire procedure. Louis Blackburn MD Louis Blackburn MD 02/28/2019 10:31:20 AM Electronically signed by Louis Blackburn MD Number of Addenda: 0 Note Initiated On: 02/28/2019 9:45 AM Estimated Blood Loss: Estimated blood loss: none.
[2019-02-28 10:40] VITALS: BP 157/72
== END 2019-02-28 10:53 | disposition home or self-care (01) ==
LOC: M OPP 08:14
PROVIDERS: ATTEND Internal Medicine Gastroenterology
DX: K63.5 Polyp of colon (principal); K57.30 Diverticulosis of large intestine without perforation or abscess without bleeding; K64.8 Other hemorrhoids; Z12.11 Encounter for screening for malignant neoplasm of colon

== ENCOUNTER 2020-05-30 11:30 | Emergency (ER) | payer MEDICARE ==
[~2020-05-30] VITALS: Ht 157.5 cm; Wt 65.3 kg
[~2020-05-30 11:30] MED LIST changes: +CYAN100049 PO; -VITA10002 PO
[2020-05-30] MEDS ORDERED: GABA-843 (11:46)
[2020-05-30 12:25] LABS: BASO # 0.1 10^3/uL (0.0-0.2); BASO % 0.5 % (0.0-1.0); EOS % 0.4 % (0.0-3.0); HEMATOCRIT 43.4 % (36.0-47.0); HEMOGLOBIN 14.2 g/dl (12.0-15.5); LYMPH # 0.8 10^3/uL (1.5-5.0); LYMPH % 7.7 % (24.0-44.0); MEAN CORPUSCULAR HEMOGLOBIN 31.8 pg (27.0-33.0); MEAN CORPUSCULAR HGB CONC 32.7 g/dl (32.0-36.5); MEAN CORPUSCULAR VOLUME 97.1 fl (80.0-96.0); MONO # 0.7 10^3/uL (0.0-0.8); MONO % 6.5 % (0.0-5.0); NEUTROPHILS % 84.7 % (36.0-66.0); PLATELET COUNT, AUTOMATED 288 10^3/uL (150-450); RED BLOOD COUNT 4.47 10^6/uL (4.00-5.40); WHITE BLOOD COUNT 10.6 10^3/uL (4.0-10.0)
[2020-05-30] MEDS ORDERED: NS 1,000 ML IV ONE (12:45)
[2020-05-30 12:54] LABS: ALBUMIN 3.4 GM/DL (3.2-5.2); ALT/SGPT 22 U/L (12-78); BILIRUBIN,DIRECT < 0.1 MG/DL (0.0-0.2); BILIRUBIN,TOTAL 0.3 MG/DL (0.2-1.0); BLOOD UREA NITROGEN 8 MG/DL (7-18); CALCIUM LEVEL 8.8 MG/DL (8.8-10.2); CARBON DIOXIDE LEVEL 27 MEQ/L (21-32); CHLORIDE LEVEL 108 MEQ/L (98-107); CREATININE FOR GFR 0.57 MG/DL (0.55-1.30); GLOMERULAR FILTRATION RATE > 60.0 (>39); GLUCOSE, FASTING 102 MG/DL (70-100); LIPASE 115 U/L (73-393); POTASSIUM SERUM 3.7 MEQ/L (3.5-5.1); SODIUM LEVEL 141 MEQ/L (136-145); TOTAL PROTEIN 6.7 GM/DL (6.4-8.2)
[2020-05-30 13:17] LABS: INR 0.94; PROTHROMBIN TIME 12.7 SECONDS (12.5-14.3)
[2020-05-30 13:18] LABS: PARTIAL THROMBOPLASTIN TIME 30.2 SECONDS (24.2-38.5)
[2020-05-30] MEDS ORDERED: ISOVUE-370 76% 100ML VIAL As Ordered ONE (14:24)
--- NOTE | 2020-05-30 15:18 | REPVR ---
PROCEDURE INFORMATION: Exam: CT Abdomen And Pelvis With Contrast Exam date and time: 05/30/2020 2:52 PM Age: 69 years old Clinical indication: Abdominal pain; Generalized; Additional info: Abd pain, hematochezia TECHNIQUE: Imaging protocol: Computed tomography of the abdomen and pelvis with intravenous contrast. Radiation optimization: All CT scans at this facility use at least one of these dose optimization techniques: automated exposure control; mA and/or kV adjustment per patient size (includes targeted exams where dose is matched to clinical indication); or iterative reconstruction. Contrast material: ISOVUE 370; Contrast volume: 100 ml; Contrast route: INTRAVENOUS (IV); COMPARISON: CR Hip, Ap,Lat 03/09/2017 11:00 AM FINDINGS: Liver: Focal hypoattenuation of the hepatic left lobe medial segment is noted adjacent to the falciform ligament fissure, likely representing focal fatty infiltration. Anterior left pulmonary basilar subsegmental atelectasis. Gallbladder and bile ducts: Normal. No calcified stones. No ductal dilation. Pancreas: Normal. No ductal dilation. Spleen: Normal. No splenomegaly. Adrenals: Normal. No mass. Kidneys and ureters: Normal. No hydronephrosis. Stomach and bowel: Mild wall thickening of the distal ascending, transverse and proximal descending colon. The patient is status post a gastric bypass procedure with an retrocolic Leliott-en-Y loop. Sigmoid colonic diverticula are present without evidence of diverticulitis. Appendix: The vermiform appendix is normal. Intraperitoneal space: Trace posterior pelvic peritoneal fluid. No pneumoperitoneum. Vasculature: Left pelvic phleboliths. Lymph nodes: No enlarged lymph nodes. Urinary bladder: Unremarkable as visualized. Reproductive: Unremarkable as visualized. Bones/joints: Mild L4-L5 anterolisthesis and spondylosis. Bilateral lower lumbar facet primary osteoarthritis. Soft tissues: Right gluteal adipose calcified injection granulomata. Mild aortic atherosclerotic calcification without aneurysm. IMPRESSION: 1. Mild wall thickening of the distal ascending, transverse and proximal descending colon. The finding is consistent with mild nonspecific colitis. Clinical correlation with the patient's specific symptomatology is recommended. 2. Previous gastric bypass. 3. Diverticulosis. Electronically signed by: Michael Tovar On 05/30/2020 15:18:31 PM
[2020-05-30] MEDS ORDERED: VANC125C3 PO (16:12)
[2020-05-30 16:49] VITALS: BP 161/67
--- NOTE | 2020-05-31 20:47 | ECGEPIP ---
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 Order Number: [id number] Reading MD: Kelesy Ortiz Measurements Intervals [place] Rate: 78 P: 69 UT: 171 QRS: -10 QRSD: 84 T: 42 QT: 380 QTc: 434 Interpretive Statements SINUS RHYTHM NSTTW ABNORMALITY DECREASED RATE 03/09/17 Electronically Signed on 05-31-2020 20:47:17 EDT by Kelsey Ortiz
--- NOTE | 2020-06-01 16:48 | ED PDOC ---
Post-Departure Follow-Up dr mckenzie faxed formal report of ct abd/p for fu Cesar Raphael MD Jun 01, 2020 16:48
== END 2020-05-30 16:54 | disposition home or self-care (01) ==
LOC: M ED 11:30
DX: A04.72 Enterocolitis due to Clostridium difficile, not specified as recurrent (principal); M81.0 Age-related osteoporosis without current pathological fracture; Z85.3 Personal history of malignant neoplasm of breast; Z98.84 Bariatric surgery status; K57.30 Diverticulosis of large intestine without perforation or abscess without bleeding; Z79.899 Other long term (current) drug therapy; Z88.8 Allergy status to other drugs, medicaments and biological substances
CPT/HCPCS: 36415; 74177; 80048; 80076; 81001; 83605; 83690; 85025; 85610; 85730; 86850; 86900; 86901; 87507; 93005; 96360; 96361; 99284; Q9967

== ENCOUNTER → 2021-03-07 | Outpatient (REF) | payer MEDICARE ==
[~2021-03-07] MED LIST changes: -ALEN70TA74; -ALEN70TA74 PO; +ALEN70TA82; +ALEN70TA82 PO; +GABA-282; +GABA-282 PO; -GABA-843 PO
== END ==
LOC: M SFHCCLAY 09:22
PROVIDERS: ATTEND Physician Assistant
DX: R30.0 Dysuria (principal)

== ENCOUNTER → 2025-01-19 | Outpatient (REF) | payer MEDICARE ==
[~2025-01-19] MED LIST changes: +GABA-1172; +GABA-1172 PO; -GABA-282; -GABA-282 PO; +VANC125C13 PO; -VANC125C3 PO
== END ==
LOC: M SFHCCLAY 17:20
PROVIDERS: ATTEND Nurse Practitioner Family
DX: N39.0 Urinary tract infection, site not specified (principal)

== ENCOUNTER 2025-03-01 16:45 | Emergency (ER) | payer MEDICARE ==
[~2025-03-01] VITALS: Ht 154.9 cm; Wt 76.7 kg
[2025-03-01 18:07] LABS: BASO # 0.1 10^3/uL (0.0-0.2); BASO % 0.7 % (0.0-1.0); EOS # 0.1 10^3/uL (0.0-0.5); EOS % 0.7 % (0.0-3.0); HEMATOCRIT 42.1 % (36.0-47.0); HEMOGLOBIN 13.4 g/dl (12.0-15.5); LYMPH % 25.9 % (24.0-44.0); MEAN CORPUSCULAR HEMOGLOBIN 31.3 pg (27.0-33.0); MEAN CORPUSCULAR HGB CONC 31.8 g/dl (32.0-36.5); MEAN CORPUSCULAR VOLUME 98.4 fl (80.0-96.0); MONO # 0.6 10^3/uL (0.0-0.8); MONO % 7.6 % (2.0-8.0); NEUTROPHILS % 64.8 % (36.0-66.0); PLATELET COUNT, AUTOMATED 309 10^3/uL (150-450); RED BLOOD COUNT 4.28 10^6/uL (4.00-5.40); WHITE BLOOD COUNT 7.7 10^3/uL (4.0-10.0)
[2025-03-01 18:12] LABS: ALBUMIN 3.6 G/DL (3.2-5.2); ALKALINE PHOSPHATASE 111 U/L (35-104); ALT/SGPT 22 U/L (7.0-40); AST/SGOT 31 U/L (<34); BILIRUBIN,DIRECT < 0.1 MG/DL (<0.4); BILIRUBIN,TOTAL 0.3 MG/DL (0.3-1.2); BLOOD UREA NITROGEN 14 MG/DL (9-23); CALCIUM LEVEL 8.3 MG/DL (8.3-10.6); CARBON DIOXIDE LEVEL 28 MMOL/L (20-31); CHLORIDE LEVEL 105 MMOL/L (98-107); CK-MB VALUE MASS 2.1 NG/ML (<3.6); CREATININE FOR GFR 0.45 MG/DL (0.55-1.30); GLOMERULAR FILTRATION RATE > 90.0 (>39); GLUCOSE, FASTING 93 MG/DL (74-106); MAGNESIUM LEVEL 1.9 MG/DL (1.8-2.4); SODIUM LEVEL 145 MMOL/L (136-145); TOTAL PROTEIN 6.7 G/DL (5.7-8.2)
[2025-03-01 18:14] LABS: FREE T4 1.28 NG/DL (0.89-1.76)
[2025-03-01 18:15] LABS: CPK CREATINE PHOSPHOKINASE 121 U/L (34-145); MB/CK RELATIVE INDEX 1.73 (< OR =4)
[2025-03-01 18:30] VITALS: BP 158/71; TEMP 97.5; O2SAT 97
== END 2025-03-01 18:43 | disposition home or self-care (01) ==
LOC: M ED 16:45
DX: I10 Essential (primary) hypertension (principal); R53.83 Other fatigue; E03.9 Hypothyroidism, unspecified; Z85.3 Personal history of malignant neoplasm of breast; Z98.84 Bariatric surgery status; Z92.3 Personal history of irradiation; Z79.899 Other long term (current) drug therapy; Z88.8 Allergy status to other drugs, medicaments and biological substances

== ENCOUNTER → 2025-04-04 | Outpatient (CLI) | payer MEDICARE | LOC: M CARPUL 15:23 | PROVIDERS: ATTEND Nurse Practitioner Family | DX: R94.31 Abnormal electrocardiogram [ECG] [EKG] (principal) ==

== ENCOUNTER → 2025-04-11 | Outpatient (CLI) | payer MEDICARE | LOC: M CLY 08:35 | PROVIDERS: ATTEND Physician Assistant | DX: S69.92XA Unspecified injury of left wrist, hand and finger(s), initial encounter (principal); X58.XXXA Exposure to other specified factors, initial encounter; Y92.9 Unspecified place or not applicable; Y93.9 Activity, unspecified; Y99.9 Unspecified external cause status ==